=== PATIENT | male | born 1945 ===

== ENCOUNTER 2018-09-21 09:37 | Outpatient (CLI) | payer OTHER ==
[~2018-09-21 09:37] MED LIST: ALTACE10 MG; ALTOPREV40 MG; GLIPIZIDE ER10 MG; JANUMET 50-5001 EACH; TENORMIN100 M1; UROXATRAL10 MG
== END 2018-09-21 09:39 | disposition home or self-care (01) ==
LOC: RAD 09:37
DX: M54.5 Low back pain (principal)

== ENCOUNTER → 2018-10-05 | Outpatient (CLI) | payer OTHER | END | disposition home or self-care (01) | LOC: MRI 13:38 | DX: M54.5 Low back pain (principal); M51.36 Other intervertebral disc degeneration, lumbar region | CPT/HCPCS: 72148 ==